=== PATIENT | male | born 1995 | race Caucasian/White ===

== ENCOUNTER 2017-01-24 15:57 | Emergency (ER) | payer OTHER, SELFPAY ==
[~2017-01-24] VITALS: Ht 175.3 cm; Wt 63.5 kg
[2017-01-24 15:58] VITALS: BP 119/79
[2017-01-24] MEDS ORDERED: CLOT1CRE6 TOP (16:31)
== END 2017-01-24 16:49 | disposition home or self-care (01) ==
LOC: M ED 16:48
DX: B35.4 Tinea corporis (principal)

== ENCOUNTER 2017-06-09 13:45 | Emergency (ER) | payer OTHER, SELFPAY ==
[~2017-06-09] VITALS: Ht 176.5 cm; Wt 65.9 kg
[~2017-06-09 13:45] MED LIST: CLOT1CRE6 TOP
[2017-06-09 13:46] VITALS: BP 116/67
--- NOTE | 2017-06-09 15:44 | REP ---
Left ankle series: Four views. History: Twisting injury. Comparison study: July 09, 2010. Findings: Ankle mortise is intact. There are accessory ossicles adjacent to the medial malleolus. No fracture is seen. Impression: No fracture noted. Accessory ossicles at the medial malleolus. Signed by Dejon Goode MD 06/09/2017 04:58 P
[2017-06-09] MEDS ORDERED: IBUP-1022 PO (16:21)
== END 2017-06-09 16:29 | disposition home or self-care (01) ==
LOC: M ED 13:45
DX: S93.402A Sprain of unspecified ligament of left ankle, initial encounter (principal); Z72.0 Tobacco use; X50.1XXA Overexertion from prolonged static or awkward postures, initial encounter; Y92.410 Unspecified street and highway as the place of occurrence of the external cause; Y93.01 Activity, walking, marching and hiking; Y99.9 Unspecified external cause status

== ENCOUNTER → 2017-09-17 | Outpatient (CLI) | payer OTHER | LOC: M OUTALCOH 07:48 | DX: F10.10 Alcohol abuse, uncomplicated (principal); F12.10 Cannabis abuse, uncomplicated ==

== ENCOUNTER 2017-09-29 09:31 | Outpatient (RCR) | payer MEDICAID | END 2017-10-08 | LOC: M OUTALCOH 09:31 | DX: F12.10 Cannabis abuse, uncomplicated (principal); F10.20 Alcohol dependence, uncomplicated ==

== ENCOUNTER 2017-10-15 16:00 | Outpatient (RCR) | payer MEDICAID | END 2017-11-05 | LOC: M OUTALCOH 10-22 15:00 | DX: F12.10 Cannabis abuse, uncomplicated (principal); F10.20 Alcohol dependence, uncomplicated ==

== ENCOUNTER 2017-11-12 11:10 | Outpatient (RCR) | payer MEDICAID | END 2017-12-06 | LOC: M OUTALCOH 11:10 | DX: F12.10 Cannabis abuse, uncomplicated (principal); F10.20 Alcohol dependence, uncomplicated ==

== ENCOUNTER 2017-12-24 11:28 | Outpatient (RCR) | payer MEDICAID | END 2018-01-05 | LOC: M OUTALCOH 11:28 | DX: F12.10 Cannabis abuse, uncomplicated (principal); F10.20 Alcohol dependence, uncomplicated ==

== ENCOUNTER 2018-01-07 15:44 | Outpatient (RCR) | payer MEDICAID | END 2018-02-05 | LOC: M OUTALCOH 01-28 08:00 | DX: F12.10 Cannabis abuse, uncomplicated (principal); F10.20 Alcohol dependence, uncomplicated ==

== ENCOUNTER 2018-02-09 10:51 | Outpatient (RCR) | payer MEDICAID | END 2018-03-07 | LOC: M OUTALCOH 02-12 08:00 | DX: F12.10 Cannabis abuse, uncomplicated (principal); F10.20 Alcohol dependence, uncomplicated ==

== ENCOUNTER 2018-06-01 18:24 | Emergency (ER) | payer OTHER, MEDICAID ==
[2018-06-01 19:05] LABS: HEMATOCRIT 48.4 % (42.0-52.0); HEMOGLOBIN 16.2 g/dl (13.5-17.5); MEAN CORPUSCULAR HEMOGLOBIN 28.3 pg (27.0-33.0); MEAN CORPUSCULAR HGB CONC 33.5 g/dl (32.0-36.5); MEAN CORPUSCULAR VOLUME 84.5 fl (80.0-96.0); PLATELET COUNT, AUTOMATED 324 10^3/uL (150-450); RED BLOOD COUNT 5.73 10^6/uL (4.30-6.10); RED CELL DISTRIBUTION WIDTH 13.5 % (11.5-14.5); WHITE BLOOD COUNT 10.8 10^3/uL (4.0-10.0)
[2018-06-01 19:34] LABS: ACETAMINOPHEN LEVEL < 2.0 UG/ML (10.0-30.0); ALBUMIN 4.6 GM/DL (3.2-5.2); ALBUMIN/GLOBULIN RATIO 1.24 (1.00-1.93); ALKALINE PHOSPHATASE 93 U/L (45-117); ALT/SGPT 47 U/L (12-78); ANION GAP 12 MEQ/L (8-16); AST/SGOT 47 U/L (7-37); BILIRUBIN,DIRECT 0.2 MG/DL (0.0-0.2); BILIRUBIN,TOTAL 0.6 MG/DL (0.2-1.0); BLOOD UREA NITROGEN 5 MG/DL (7-18); CALCIUM LEVEL 9.1 MG/DL (8.5-10.1); CARBON DIOXIDE LEVEL 22 MEQ/L (21-32); CHLORIDE LEVEL 102 MEQ/L (98-107); CREATININE FOR GFR 0.83 MG/DL (0.70-1.30); ETHYL ALCOHOL (ETHANOL) 0.314 % (0.000-0.010); GLOMERULAR FILTRATION RATE > 60.0 (>60); GLUCOSE, FASTING 101 MG/DL (70-100); SALICYLATE LEVEL 2.7 MG/DL (5.0-30.0); SODIUM LEVEL 136 MEQ/L (136-145); THYROID STIMULATING HORMONE 0.583 uIU/ML (0.358-3.740); TOTAL PROTEIN 8.3 GM/DL (6.4-8.2)
[2018-06-01 19:57] LABS: AMPHETAMINES LEVEL URINE NEGATIVE (NEGATIVE); BARBITURATES URINE NEGATIVE (NEGATIVE); BENZODIAZEPINES URINE NEGATIVE (NEGATIVE); CANNABINOIDS URINE NEGATIVE (NEGATIVE); COCAINE METABOLITE URINE NEGATIVE (NEGATIVE); METHADONE URINE NEGATIVE (NEGATIVE); OPIATES URINE NEGATIVE (NEGATIVE); PHENCYCLIDINE URINE NEGATIVE (NEGATIVE)
== END 2018-06-01 22:21 | disposition home or self-care (01) ==
LOC: M ED 18:24
DX: F10.239 Alcohol dependence with withdrawal, unspecified (principal); F17.200 Nicotine dependence, unspecified, uncomplicated
CPT/HCPCS: 70450